=== PATIENT | male | born 1950 | race Caucasian/White ===

== ENCOUNTER 2024-09-18 16:12 | Inpatient (IN) | payer BC, OTHER ==
[~2024-09-18] VITALS: Ht 162.6 cm; Wt 72.6 kg
[2024-09-18 16:32] LABS: BASOPHILS # (AUTO) 0.1 K/UL (0.0-0.2); BASOPHILS % (AUTO) 0.6 % (0.0-2.0); DIFFERENTIAL COMMENT 0; EOSINOPHILS # (AUTO) 0.1 K/uL (0.0-0.7); EOSINOPHILS % (AUTO) 1.6 % (0.0-7.0); HEMATOCRIT 48.6 % (36.7-47.1); HEMOGLOBIN 15.6 g/dL (12.5-16.3); LYMPHOCYTES # (AUTO) 1.8 K/uL (0.8-4.8); LYMPHOCYTES % (AUTO) 20.6 % (20.5-51.5); MEAN CORPUSCULAR HGB CONC 32 g/dL (32.5-36.3); MEAN CORPUSCULAR VOLUME 93.3 fL (73.0-96.2); MONOCYTES % (AUTO) 11.6 % (0.0-11.0); NEUTROPHILS # (AUTO) 5.7 K/uL (1.8-8.9); NEUTROPHILS % (AUTO) 65.6 % (38.5-71.5); PLATELET COUNT (AUTO) 197 K/uL (152-348); RED BLOOD CELL COUNT(AUTO) 5.21 MIL/uL (4.06-5.63); RED CELL DISTRIBUTION WIDTH 16.3 % (12.1-16.2); WHITE BLOOD COUNT (AUTO) 8.8 K/uL (3.6-10.2)
[2024-09-18] MEDS ORDERED: SWABABLE VALVE TRANSFER SET EA MC ONE (16:33)
[2024-09-18] MEDS ORDERED: IV NORMAL SALINE 250 ML IV ONE (16:33)
[2024-09-18] MEDS ORDERED: IOHEXOL 350 100 ML INFUS..BTL ONE (16:33)
[2024-09-18 16:49] LABS: ALANINE AMINOTRANSFERASE 30 U/L (16-63); ALBUMIN 3.3 g/dL (3.4-5.0); ALKALINE PHOSPHATASE 83 U/L (50-136); ASPARTATE AMINOTRANSFERASE 20 U/L (15-37); BILIRUBIN,DIRECT 0.3 mg/dL (0.0-0.2); BILIRUBIN,TOTAL 1.4 mg/dL (0.2-1.0); CALCIUM 9.7 mg/dL (8.5-10.1); CARBON DIOXIDE 27 mmol/L (21-32); CHLORIDE 106 mmol/L (98-107); CREATININE 1.8 mg/dL (0.6-1.3); GLUCOSE 99 mg/dL (74-106); POTASSIUM 4.5 mmol/L (3.5-5.1); SODIUM SERUM 135 mmol/L (136-145); TOTAL PROTEIN, SERUM 6.8 g/dL (6.4-8.2); UREA NITROGEN, BLOOD 28 mg/dL (7-18)
[2024-09-18 17:56] LABS: *BILIRUBIN,URIN NEGATIVE (NEGATIVE); *BLOOD, URINE 2+ (NEGATIVE); *CLARITY,URINE CLEAR (CLEAR); *COLOR,URINE YELLOW (YELLOW); *KETONES,URINE NEGATIVE (NEGATIVE); *PROTEIN,URINE NEGATIVE (NEGATIVE); *UROBILINOGEN,URINE 0.2 E.U./dl (NORMAL); LEUKOCYTE ESTERASE ,URINE NEGATIVE (NEGATIVE); NITRITE, URINE NEGATIVE (NEGATIVE); UGLUCOSE NEGATIVE (NEGATIVE)
[2024-09-18 18:00] LABS: WBC,URINE 0-3 /HPF (0-3)
[2024-09-18] MEDS ORDERED: LEVO150T8 PO (19:03)
[2024-09-18] MEDS ORDERED: AMIO200T5 PO (19:03)
[2024-09-18] MEDS ORDERED: OMEP20CA15 PO (19:03)
[2024-09-18] MEDS ORDERED: METO-356 PO (19:03)
[2024-09-18] MEDS ORDERED: ATOR80TA PO (19:03)
[2024-09-18] MEDS ORDERED: APIX2.5T PO (19:03)
[2024-09-18] MEDS ORDERED: SILO4CAP3 PO (19:03)
[2024-09-18 20:00] VITALS: BP_SYST 125; BP_SYST 127; BP_DIAS 81; BP_DIAS 82; TEMP 98; TEMP 98.3; O2SAT 93
[2024-09-18] MEDS ORDERED: ACETAMINOPHEN 325 MG TABLET PO PRN (20:15)
[2024-09-18] MEDS ORDERED: ONDANSETRON 4 MG/2 ML VIAL IV PRN (20:15)
[2024-09-18] MEDS ORDERED: MECLIZINE HCL 25 MG TABLET PO PRN (20:15)
[2024-09-18] MEDS ORDERED: REMEDY ESSENTIAL ZINC PASTE 113 GM TP PRN (20:15)
[2024-09-18] MEDS ORDERED: DIAZEPAM 5 MG TABLET PO PRN (20:15)
[2024-09-18] MEDS ORDERED: MAGNESIUM HYDROXIDE 30 ML LIQUID UDC PO PRN (20:15)
[2024-09-18 20:58] LABS: THYROID STIMULATING HORMONE 3.049 mIU/mL (0.358-3.740)
[2024-09-18] MEDS: ATORVASTATIN 40 MG TABLET PO SCH (21:19)
[2024-09-19 05:16] VITALS: BP 113/75; TEMP 98; O2SAT 94
[2024-09-19] MEDS: PANTOPRAZOLE SODIUM 40 MG TABLET.DR PO SCH (06:36)
[2024-09-19 06:47] LABS: BASOPHILS % (AUTO) 0.5 % (0.0-2.0); EOSINOPHILS # (AUTO) 0.2 K/uL (0.0-0.7); EOSINOPHILS % (AUTO) 2.8 % (0.0-7.0); HEMOGLOBIN 15.7 g/dL (12.5-16.3); LYMPHOCYTES % (AUTO) 25.2 % (20.5-51.5); MEAN CORPUSCULAR HEMOGLOBIN 30.5 uug (23.8-33.4); MEAN CORPUSCULAR HGB CONC 33 g/dL (32.5-36.3); MEAN CORPUSCULAR VOLUME 93.1 fL (73.0-96.2); MONOCYTES # (AUTO) 0.9 K/uL (0.1-1.30); MONOCYTES % (AUTO) 11.8 % (0.0-11.0); NEUTROPHILS # (AUTO) 4.7 K/uL (1.8-8.9); NEUTROPHILS % (AUTO) 59.7 % (38.5-71.5); PLATELET COUNT (AUTO) 188 K/uL (152-348); RED BLOOD CELL COUNT(AUTO) 5.15 MIL/uL (4.06-5.63); RED CELL DISTRIBUTION WIDTH 16.4 % (12.1-16.2); WHITE BLOOD COUNT (AUTO) 7.8 K/uL (3.6-10.2)
[2024-09-19 06:53] LABS: DIFFERENTIAL COMMENT 1
[2024-09-19 07:06] LABS: CALCIUM 9.4 mg/dL (8.5-10.1); CARBON DIOXIDE 28 mmol/L (21-32); CHLORIDE 107 mmol/L (98-107); CREATININE 1.6 mg/dL (0.6-1.3); GLUCOSE 89 mg/dL (74-106); MAGNESIUM 2.1 mg/dL (1.8-2.4); PHOSPHOROUS 3.7 mg/dL (2.5-4.9); POTASSIUM 4.2 mmol/L (3.5-5.1); SODIUM SERUM 141 mmol/L (136-145); UREA NITROGEN, BLOOD 25 mg/dL (7-18)
[2024-09-19 07:48] VITALS: BP 138/90; TEMP 97.7; O2SAT 95
[2024-09-19] MEDS: METOPROLOL SUCCINATE XL 25 MG TAB.SR.24H PO SCH (08:48)
[2024-09-19] MEDS: APIXABAN 2.5 MG TABLET PO SCH (08:49)
[2024-09-19] MEDS: LEVOTHYROXINE SODIUM 150 MCG TABLET PO SCH (08:50)
[2024-09-19] MEDS: AMIODARONE HCL 200 MG TABLET PO SCH (08:50)
[2024-09-19 11:55] VITALS: BP 120/93; TEMP 97.9; O2SAT 95
[2024-09-19 15:50] VITALS: BP 134/77; TEMP 97.7; O2SAT 94
[2024-09-19 20:35] VITALS: BP 128/84; TEMP 98.1; O2SAT 95
[2024-09-20 00:25] VITALS: BP 129/86; TEMP 97.8; O2SAT 93
[2024-09-20 04:20] VITALS: BP 126/75; TEMP 97.6; O2SAT 96
[2024-09-20 07:36] VITALS: BP 128/84; TEMP 98.2; O2SAT 93
[2024-09-20 07:51] LABS: BASOPHILS # (AUTO) 0.1 K/UL (0.0-0.2); BASOPHILS % (AUTO) 0.7 % (0.0-2.0); EOSINOPHILS # (AUTO) 0.2 K/uL (0.0-0.7); EOSINOPHILS % (AUTO) 2.5 % (0.0-7.0); HEMATOCRIT 48.6 % (36.7-47.1); HEMOGLOBIN 16.1 g/dL (12.5-16.3); LYMPHOCYTES # (AUTO) 1.7 K/uL (0.8-4.8); LYMPHOCYTES % (AUTO) 19.6 % (20.5-51.5); MEAN CORPUSCULAR HEMOGLOBIN 30.4 uug (23.8-33.4); MEAN CORPUSCULAR HGB CONC 33 g/dL (32.5-36.3); NEUTROPHILS # (AUTO) 5.6 K/uL (1.8-8.9); NEUTROPHILS % (AUTO) 65.2 % (38.5-71.5); PLATELET COUNT (AUTO) 190 K/uL (152-348); RED BLOOD CELL COUNT(AUTO) 5.29 MIL/uL (4.06-5.63); WHITE BLOOD COUNT (AUTO) 8.5 K/uL (3.6-10.2)
[2024-09-20 07:59] LABS: DIFFERENTIAL COMMENT 1
[2024-09-20 08:16] VITALS: BP 128/84
[2024-09-20 08:46] LABS: ALANINE AMINOTRANSFERASE 20 U/L (16-63); ALBUMIN 3.1 g/dL (3.4-5.0); ALKALINE PHOSPHATASE 81 U/L (50-136); ASPARTATE AMINOTRANSFERASE 18 U/L (15-37); CALCIUM 9.3 mg/dL (8.5-10.1); CARBON DIOXIDE 27 mmol/L (21-32); CHLORIDE 105 mmol/L (98-107); CREATININE 1.5 mg/dL (0.6-1.3); GLUCOSE 97 mg/dL (74-106); MAGNESIUM 1.9 mg/dL (1.8-2.4); PHOSPHOROUS 3.8 mg/dL (2.5-4.9); POTASSIUM 4.1 mmol/L (3.5-5.1); SODIUM SERUM 141 mmol/L (136-145); TOTAL PROTEIN, SERUM 6.3 g/dL (6.4-8.2); UREA NITROGEN, BLOOD 25 mg/dL (7-18)
[2024-09-20] MEDS: CYANOCOBALAMIN 1000 MCG/ML VIAL IM ONE (09:25)
== END 2024-09-20 12:15 | disposition home or self-care (01) | DRG 149 ==
LOC: ER 16:12 → TELE3 19:11 → MEDSURG3 09-20 10:10
PROVIDERS: ADMIT Nurse Practitioner Acute Care; ATTEND Nurse Practitioner Acute Care
DX: H81.10 Benign paroxysmal vertigo, unspecified ear (principal); N17.0 Acute kidney failure with tubular necrosis; E87.1 Hypo-osmolality and hyponatremia; R17 Unspecified jaundice; D68.59 Other primary thrombophilia; I13.0 Hypertensive heart and chronic kidney disease with heart failure and stage 1 through stage 4 chronic kidney disease, or unspecified chronic kidney disease; I50.22 Chronic systolic (congestive) heart failure; E88.09 Other disorders of plasma-protein metabolism, not elsewhere classified; E78.5 Hyperlipidemia, unspecified; E03.9 Hypothyroidism, unspecified; I48.91 Unspecified atrial fibrillation; I25.2 Old myocardial infarction; Z79.899 Other long term (current) drug therapy; Z79.01 Long term (current) use of anticoagulants; Z79.890 Hormone replacement therapy; N18.2 Chronic kidney disease, stage 2 (mild); R29.898 Other symptoms and signs involving the musculoskeletal system; Z98.890 Other specified postprocedural states; E66.9 Obesity, unspecified; Z68.27 Body mass index [BMI] 27.0-27.9, adult; I25.10 Atherosclerotic heart disease of native coronary artery without angina pectoris; R27.0 Ataxia, unspecified; K21.9 Gastro-esophageal reflux disease without esophagitis
CPT/HCPCS: 36415; 70450; 70496; 71045; 83735; 84100; 84443; 84484; 85025; 85730; 93307; G0378; J3420; Q9967